=== PATIENT | male | born 1955 | race Caucasian/White ===

== ENCOUNTER 2020-12-30 18:53 | Emergency (ER) | payer MEDICARE ==
[~2020-12-30] VITALS: Ht 180.3 cm; Wt 108.0 kg
[~2020-12-30 18:53] MED LIST: ACET-1600 PO; CEPH-376 PO; HYDR-3248 PO; HYDROCHLOROTH12.5 MG PO; LISI-170 PO; METH-640 PO; RIVA20TA PO; SAW1CAPS6 PO; SOTA80TA18 PO
--- NOTE | 2020-12-30 18:56 | NUR ---
BREAK RN: THIS IS A 65 YEAR OLD MALE WHO WAS BIB AMBULANCE DUE TO CONSTIPATION, LAST BM X 5 DAYS AGO. PT IS AT [facility]. S/P LOWER BACK SURGERY 12/22/2020, MARTINEZ CATH IN PLACE. PT HX OF AFIB. PT PLACED ON ACO COORDINATOR SINUS, CONTINOUS SP02, AND CYCLE VS.
[2020-12-30] MEDS ORDERED: DOCU-131 PO (19:20)
[2020-12-30] MEDS ORDERED: GABA600T7 PO (19:20)
--- NOTE | 2020-12-30 19:20 | NUR ---
REPORT FROM LISA SALAS. LAB AT BEDSIDE
[2020-12-30 19:35] LABS: BASOPHILS % (AUTO) 1 % (0-1); EOSINOPHILS % (AUTO) 4 % (1-7); LYMPHOCYTES % (AUTO) 19 % (22-44); MEAN CORPUSCULAR HEMOGLOBIN 33.2 pg (27.5-34.5); MEAN CORPUSCULAR HGB CONC 33.8 g/dL (33.2-36.2); MEAN PLATELET VOLUME 8.7 fL (7.4-10.4); MONOCYTES % (AUTO) 10 % (2-9); NEUTROPHILS % (AUTO) 66 % (42-75); PLATELET COUNT 191 x10^3/uL (130-400); RED BLOOD COUNT 4.16 x10^6/uL (4.38-5.82); RED CELL DISTRIBUTION WIDTH 14.4 % (9.4-14.8)
[2020-12-30 19:43] LABS: ALBUMIN 3.2 g/dL (3.4-5.0); ANION GAP 9 mmol/L (5-15); CALCIUM 9.2 mg/dL (8.5-10.1); CHLORIDE 107 mmol/L (98-107)
--- NOTE | 2020-12-30 19:43 | NUR ---
PT TO CT WITH STEEPING PRESS TENDER
[2020-12-30 19:49] LABS: ALANINE AMINOTRANSFERASE 23 U/L (12-78); ALKALINE PHOSPHATASE 80 U/L (45-117); BILIRUBIN,TOTAL 0.8 mg/dL (0.2-1.0); CREATININE 0.96 mg/dL (0.7-1.3); TOTAL PROTEIN 7.2 g/dL (6.4-8.2); TROPONIN I < 0.015 ng/mL (0.000-0.045)
--- NOTE | 2020-12-30 20:11 | NUR ---
PT RETURNED FROM CT, NAD NOTED. REPORTS IMPROVED PAIN IN SIDE LYING POSITION. PT DENIES NEED FOR PAIN/NAUSEA MEDICATION. + PASSING GAS. BP/SPO2 MONITORING IN PLACE. VSS
[2020-12-30] MEDS ORDERED: MAGNESIUM CITRATE 300ML ORAL SOL PO ONE (20:30)
[2020-12-30] MEDS ORDERED: METHYLNALTREXONE 12 MG/0.6 ML SYR SQ ONE ×2 (20:30→20:38)
--- NOTE | 2020-12-30 20:33 | NUR ---
PT REFUSING TO GO BACK TO HIS REHAB FACILITY. CASE MANAGEMENT CALLED TO DISCUSS OPTIONS FOR DISPO
--- NOTE | 2020-12-30 21:31 | NUR ---
HOSPITAL BED REQUESTED
--- NOTE | 2020-12-30 22:04 | NUR ---
PT TRANSFERRED TO ED 22 VIA GURNEY. PT REQUIRING ASSISTANCE TO TRANSFER. BEDSIDE COMMODE AND WALKER AVAILABLE. JERARDO RN AT BEDSIDE TO ASSESS MOBILITY TO AND FROM COMMODE.
[2020-12-30] MEDS ORDERED: MAGNESIUM CITRATE 300ML ORAL SOL ONE (22:43)
--- NOTE | 2020-12-30 22:55 | NUR ---
GIVEN 1/2 MAG CITRATE DOSE. BEDSIDE COMMODE AVAILABLE. HOSPITAL SOCKS ON. WALKER AT BEDSIDE TO ASSIST TRANSPORT TO COMMODE. CALL LIGHT WITHIN REACH. PT EDUCATED ON USE OF CALL LIGHT AND IS IN AGREEMENT TO CALL RN WHEN READY TO TRANSFER TO COMMODE
--- NOTE | 2020-12-30 23:16 | NUR ---
PT ASSISTED TO BEDSIDE COMMODE.
--- NOTE | 2020-12-30 23:59 | NUR ---
PT W LARGE BOWEL MOVEMENT AND IMPROVED S/S WITH BM. PT TRANSFERED SELF TO BED WITH USE OF WALKER. BANDAGE OVER LUMBAR SURGICAL WOUND REPLACED. NO DRAINAGE NOTED. Addendum: 12/31/20 at 0206 by LWEGENER EXTENSIVE CONVERSATION HAD W PATIENT REGARDING MARTINEZ. PER PT, MARTINEZ IN PLACE SINCE PRIOR TO DC FROM [facility]; DENIES HX OF BPH/OBSTRUCTION/RETENTION. WHEN ASKED TO DC, PT STATED "I THINK I'LL KEEP IT. ITS EASIER THAN USING A URINAL OR MAKING A MESS". PT EDUCATED ON POSSIBILITY OF MARTINEZ INFECTION. UO MINIMAL, DARK WO SEDEMENT. PT PROVIDED PO FLUIDS.
--- NOTE | 2020-12-31 01:00 | NUR ---
PT RESTING IN GURNEY W EYES CLOSED. EVEN/REGULAR RESPIRATIONS NOTED.
[2020-12-31] MEDS ORDERED: RIVAROXABAN 20 MG TABLET PO ONE (01:25)
--- NOTE | 2020-12-31 02:06 | NUR ---
PT ASSISTED TO/FROM COMMODE. NO BM. DENIES PAIN/NAUSEA/NEEDS.
--- NOTE | 2020-12-31 03:15 | NUR ---
RECEIVED REPORT FROM LISA REVELES
--- NOTE | 2020-12-31 03:22 | NUR ---
REPORT TO LISA SAMSON
--- NOTE | 2020-12-31 04:00 | NUR ---
PT RESTING ON BED, DENIES NEEDS AT THIS TIME.
--- NOTE | 2020-12-31 05:00 | NUR ---
PT RESTING ON BED, DENIES NEEDS AT THIS TIME.
--- NOTE | 2020-12-31 06:45 | NUR ---
PT RESTING ON BED, PT GIVEN WATER, WANTS HIS FRIEND CALLED TO TAKE HIM HOME TO [place]. REPORT GIVEN TO LISA LOVETT
--- NOTE | 2020-12-31 08:15 | NUR ---
PT ASLEEP IN [facility] AT THIS TIME; DIET TRAY ORDERED FOR PT AND PHARMACY CALLED FOR CLARIFICATION OF MISSED MEDICATION DOSE. WILL ADMINISTER MEDICATION WITH BREAKFAST PER PHARMACY. CALL LIGHT IS WITHIN REACH OF PT AT THIS TIME.
--- NOTE | 2020-12-31 08:50 | NUR ---
TASK RN, COVERING PRIMARY BREAK. VSS/UPDATED IN COMPUTER. CALL LIGHT WITHIN REACH. PT WATCHING TV, DRINKING MILK.
--- NOTE | 2020-12-31 10:52 | NUR ---
PT REQUESTED PAT (NEIGHBOR) CALLED AT [phone] FOR RIDE HOME. PAT CALLED. PER PAT, PT WILL BE PICKED UP AT 1430 TODAY FOR SAFE D/C HOME. DR BRANCH AWARE AND D/C PAPERWORK PRINTED AT THIS TIME.
--- NOTE | 2020-12-31 10:53 | NUR ---
REPORT RECEIVED FROM RACHELL GONZALEZ. ASSUMING CARE AT THIS TIME.
--- NOTE | 2020-12-31 10:55 | NUR ---
REPORT OF PT TO LISA HERNANDEZ. ALL QUESTIONS ANSWERED.
--- NOTE | 2020-12-31 13:35 | NUR ---
PT ASSISTED IN GETTING DRESSED. PT DOES NOT HAVE HIS SHOES, PT STATES THEY ARE STILL AT [facility]. PT WEARING NON-SKID SOCKS.
[2020-12-31 15:01] VITALS: BP 114/61
== END 2020-12-31 15:06 | disposition home or self-care (01) ==
LOC: ED 20:30 → UNDOADMOB 20:40 → EDIP 20:40 → INTOOBSV 20:40 → ED 22:17
DX: K59.00 Constipation, unspecified (principal); I10 Essential (primary) hypertension
CPT/HCPCS: 36415; 71045; 74176; 80053; 83880; 84484; 85025; 96372; 99285